=== PATIENT | female | born 1965 | race Caucasian/White ===

== ENCOUNTER 2019-06-25 20:40 | Observation (INO) | payer BC ==
[~2019-06-25] VITALS: Ht 167.6 cm; Wt 114.1 kg
[~2019-06-25 20:40] MED LIST: MOTRIN 800800 MG/TAB PO; PERCOCET 325 MG1 TA2 PO; PROZAC 20MG20 MG PO; TOPROL XL 50MG50 MG PO
[2019-06-25 21:34] LABS: BASO % 0.4 % (0.0-2.0); EOS % 0.4 % (0-4.0); GRAN # 5.9 (1.4-6.5); GRAN % 73.5 % (42.2-75.2); HEMATOCRIT 39.9 % (37.0-47.0); HEMOGLOBIN 13.3 g/dl (12.5-16.0); LYMPH # 1.4 (1.2-3.4); LYMPH % 16.9 % (20.0-51.0); MEAN CELL VOLUME 84 fl (80.0-100.0); MEAN CORPUSCULAR HEMOGLOBIN 28 pg (27.0-31.0); MEAN CORPUSCULAR HGB CONC 33 g/dl (33.0-37.0); MEAN PLATELET VOLUME 9.7 fl (7.4-10.4); MONO # 0.7 (0.1-0.6); MONO % 8.4 % (1.7-9.3); PLATELET COUNT 176 K/mm3 (130-400); RED BLOOD COUNT 4.73 M/mm3 (4.10-5.30); REDCELL DISTRIBUTION WIDTH-CV 12.8 % (11.5-14.5)
[2019-06-25 21:47] LABS: ALANINE AMINOTRANSFERASE 78 U/L (9-52); ALBUMIN 4.4 gm/dL (3.5-5.0); ALKALINE PHOSPHATASE 159 U/L (50-136); ANION GAP 15 mmol/L (7-16); AST,SGOT 99 U/L (15-37); BILIRUBIN,TOTAL 1.3 mg/dL (0.0-1.0); BLOOD UREA NITROGEN 18 mg/dL (7-17); CALCIUM 9.3 mg/dL (8.4-10.2); CARBON DIOXIDE 23 mmol/L (22-30); CHLORIDE 100 mmol/L (98-107); CREATININE, serum 0.73 (0.52-1.25); GLUCOSE 136 mg/dL (74-106); POTASSIUM 3.7 mmol/L (3.4-5.0); SODIUM 139 mmol/L (137-145); TOTAL PROTEIN 8.2 gm/dL (6.4-8.2)
[2019-06-25 22:00] LABS: TROPONIN-I < 0.012 ng/mL (0.000-0.035)
[2019-06-26] VITALS (7 sets, daily range): BP systolic 116–143; BP diastolic 46–61; PULSE 98–113; TEMP 98.2–99.7
[2019-06-26] MEDS ORDERED: CYMBALTA 60MG60 MG PO (02:11)
[2019-06-26] MEDS ORDERED: ATARAX 25MG25 MG/TAB PO (02:12)
[2019-06-26] MEDS ORDERED: CYMBALTA 30MG30 MG PO (03:12)
[2019-06-26 04:09] LABS: BASO % 0.3 % (0.0-2.0); EOS # 0.1 (0.0-0.7); EOS % 0.8 % (0-4.0); GRAN # 5.3 (1.4-6.5); GRAN % 68.9 % (42.2-75.2); HEMOGLOBIN 12.3 g/dl (12.5-16.0); LYMPH # 1.7 (1.2-3.4); LYMPH % 22.1 % (20.0-51.0); MEAN CELL VOLUME 85 fl (80.0-100.0); MEAN CORPUSCULAR HEMOGLOBIN 28 pg (27.0-31.0); MEAN CORPUSCULAR HGB CONC 33 g/dl (33.0-37.0); MEAN PLATELET VOLUME 9.4 fl (7.4-10.4); MONO # 0.6 (0.1-0.6); MONO % 7.6 % (1.7-9.3); PLATELET COUNT 159 K/mm3 (130-400); RED BLOOD COUNT 4.37 M/mm3 (4.10-5.30); REDCELL DISTRIBUTION WIDTH-CV 12.9 % (11.5-14.5)
[2019-06-26 04:24] LABS: ALANINE AMINOTRANSFERASE 84 U/L (9-52); ALKALINE PHOSPHATASE 155 U/L (50-136); ANION GAP 9 mmol/L (7-16); AST,SGOT 105 U/L (15-37); BILIRUBIN,TOTAL 1.1 mg/dL (0.0-1.0); BLOOD UREA NITROGEN 11 mg/dL (7-17); CALCIUM 8.9 mg/dL (8.4-10.2); CARBON DIOXIDE 27 mmol/L (22-30); CHLORIDE 103 mmol/L (98-107); CREATININE, serum 0.63 (0.52-1.25); GLUCOSE 111 mg/dL (74-106); POTASSIUM 3.9 mmol/L (3.4-5.0); SODIUM 139 mmol/L (137-145); TOTAL PROTEIN 7.6 gm/dL (6.4-8.2)
[2019-06-26 04:37] LABS: TROPONIN-I 6 HR POST INITIAL < 0.012 ng/mL (0.000-0.034)
[2019-06-26] MEDS ORDERED: MULTI VITAMINS1 TAB PO (06:29)
--- NOTE | 2019-06-26 07:00 | NUR ---
Bedside shift report received from JONO Low. PT in bed resting, in pain, will provide pain meds shortly and ocntinue to monitor.
[2019-06-26 08:14] LABS: COLLECTION METHOD CLEAN CATCH
[2019-06-26 08:19] LABS: MUCOUS Present /lpf; PH 5 (5-8); SQUAMOUS EPITHELIAL 0-2 /hpf; URINE APPEARANCE Clear; URINE BACTERIA None Seen /hpf; URINE BILIRUBIN Negative (NEGATIVE); URINE BLOOD Negative (NEGATIVE); URINE COLOR Yellow; URINE GLUCOSE Negative (NEGATIVE); URINE KETONE Trace (NEGATIVE); URINE LEUKOCYTE ESTERASE Negative (NEGATIVE); URINE NITRATE Negative (NEGATIVE); URINE PROTEIN(semi-quant) Negative (NEGATIVE); URINE RBC 0-2 /hpf; URINE UROBILINOGEN >=4.0 mg/dL (NEGATIVE)
--- NOTE | 2019-06-26 09:00 | NUR ---
Assessment charted. Pt c/o pain at 8/10 to R breast area. IVF to [place] and Heparin gtt at 18 ml/hr. Will continue josephine onitor.
--- NOTE | 2019-06-26 18:32 | NUR ---
Pt was in pain most of shift, PRN pain meds given per request. This afternoon pt was very tearful and frustated with situation, called hospitalist and Montez talked with pt about plan. Pt resting in bed now with visitors at bedside, denies needs, will continue to monitor and give bedside shift report to nightshift nruse who will resume care.
--- NOTE | 2019-06-26 19:35 | NUR ---
Received report from day shift. Patient is awke on bed with relatives on bedside. With IV at right AC infusing NS at 150cc/hr. Patient complains of pain with score of 6/10 mostly on her right side/breast. Informed her that I can give Tylenol for now since it's still too early give the [place] and she agrees with it.
--- NOTE | 2019-06-26 21:10 | NUR ---
Patient still has pain and states that Tylenol didn't help her relieved from pain. PRN [place] given.
--- NOTE | 2019-06-27 00:45 | NUR ---
Patient states pain has been lessen with pain score of 3/10.
[2019-06-27 03:55] VITALS: BP 147/74; PULSE 103; TEMP 99.5
--- NOTE | 2019-06-27 04:20 | NUR ---
Changed patient's IV fluids. Patient denies any severe pain, with a score of 3/10.
--- NOTE | 2019-06-27 07:18 | NUR ---
RT ENTERED ROOM TO FIND PT IN DISTRESS AND CRYING. SHE WAS UPSET THAT HER NEEDS HAD NOT BEEN MET DURING THE NIGHT. SHE WAS HAVING PAIN IN HER RIGHT CHEST AND ASKED FOR PAIN MEDS. PT APPEARED TO RELAX A LITTLE WITH BREATHING TX, BUT STILL WAITING ON PAIN MEDS. O2 STARTED @ 2 LPM POST TX BY RT.
[2019-06-27 09:00] VITALS: BP 165/78; PULSE 115; TEMP 97.4
[2019-06-27 09:30] VITALS: BP 165/78; PULSE 115; TEMP 97.4
--- NOTE | 2019-06-27 11:11 | NUR ---
After receiving report and meeting patient, she was obviously upset and crying. She stated she was in pain. She was breating rapidly and shallow and indicating she was very anxious. Did administer PRN pain medication after nebulizer treatment. She was upset stating she had been in pain all night and she was sweating and cold off and on through the night. Did check on patient after recieing PRN mediation and she stated that she was feeling much better and voiced that she would like to shower after breakfast. Patient was had IV covered and telemetry removed for this. at bedside and patient independently got in shower. No other needs verbalzied. Call light and personal items are within reach.
--- NOTE | 2019-06-27 11:42 | NUR ---
Initial visit; Patient thanked Patient Financial Services Specialist for looking in on her and offering spiritual care.
[2019-06-27 12:08] VITALS: BP 156/96; PULSE 113; TEMP 100.7
[2019-06-27] MEDS ORDERED: ZITHROMAX500 M2 PO (13:20)
[2019-06-27] MEDS ORDERED: OMNICEF 300MG300 MG PO (13:21)
[2019-06-27] MEDS ORDERED: IBU400 MG PO (13:22)
[2019-06-27] MEDS ORDERED: TYLENOL 325MG325 MG PO (13:23)
[2019-06-27] MEDS ORDERED: NORCO 325 MG-51 TAB PO (13:23)
--- NOTE | 2019-06-27 15:39 | NUR ---
AVI met with the patient and her son-in-law, Miguel to discuss a discharge plan. AVI obtained permission from the patient for Miguel to be present during intake. The patient live in [place] with her , Jl and daughter, Alicia. The patient does not use DME and reports independence with ADLs. The patient's PCP is Dr. Segundo and patient receives medication from [facility] [facility] with no difficulties. The patient does not have advanced directives in the EMR and was not interested in DPOA-HC form. The patient plans to return home upon discharge. There are no additional needs at this time.
--- NOTE | 2019-06-27 15:44 | NUR ---
Patient discharged to home at 1530, did not wish to ride in wheelchair. All personal belongings taken with patient.
== END 2019-06-27 15:30 | disposition home or self-care (01) ==
LOC: COL.ER 20:40 → MEDICAL 06-26 00:46
PROVIDERS: Emergency Medicine; Nurse Practitioner Family; ADMIT Internal Medicine
DX: A41.9 Sepsis, unspecified organism (principal); J18.9 Pneumonia, unspecified organism; I10 Essential (primary) hypertension; F41.9 Anxiety disorder, unspecified; F32.9 Major depressive disorder, single episode, unspecified; R79.89 Other specified abnormal findings of blood chemistry; E80.7 Disorder of bilirubin metabolism, unspecified; Z98.84 Bariatric surgery status; E66.9 Obesity, unspecified; Z79.899 Other long term (current) drug therapy
CPT/HCPCS: A4216; G0378; J0456; J0696; J1170; J1644; J1885; J2270; J7030; J7050; Q9967